=== PATIENT | female | born 2000 | race Caucasian/White ===

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

== ENCOUNTER 2020-01-07 02:41 | Outpatient (CLI) | payer MEDICAID ==
[~2020-01-07] VITALS: Ht 165.1 cm; Wt 125.0 kg
[2020-01-07 03:27] VITALS: BP 129/83
[2020-01-07 03:27] LABS: MICROSCOPIC INDICATED
== END 2020-01-07 04:10 | disposition home or self-care (01) ==
LOC: LDOP 02:41
PROVIDERS: ATTEND Obstetrics & Gynecology Female Pelvic Medicine and Reconstructive Surgery
DX: O42.92 Full-term premature rupture of membranes, unspecified as to length of time between rupture and onset of labor (principal); Z3A.39 39 weeks gestation of pregnancy
CPT/HCPCS: 59025; 81001

== ENCOUNTER 2020-01-11 12:09 | Inpatient (IN) | payer MEDICAID ==
[~2020-01-11] VITALS: Ht 165.1 cm; Wt 125.0 kg
[2020-01-18] MEDS ORDERED: MISOPROSTOL 25 MCG TABLET ONE ×2 (11:59→16:03)
[2020-01-18] MEDS ORDERED: OXYTOCIN 30U/ 0.9% NaCL 500ML 500 ML ONE (11:59)
[2020-01-18] MEDS ORDERED: NEWBORN KIT ONE (11:59)
[2020-01-18] MEDS: LACTATED RINGERS 1,000 ML IV SCH (12:15)
[2020-01-18] MEDS: MISOPROSTOL 25 MCG TABLET VG PRN ×2 (12:15→16:15)
[2020-01-18] MEDS ORDERED: TERBUTALINE 1 MG/ML, 1ML IVPush PRN (12:30)
[2020-01-18] MEDS ORDERED: FENTANYL PF 100 MCG/2ML IVPush PRN (12:30)
[2020-01-18] MEDS ORDERED: CALCIUM CARBONATE 500 MG TAB.CHEW PO PRN (12:30)
[2020-01-18] MEDS ORDERED: ONDANSETRON 2MG/ML, 2ML IVPush PRN (12:30)
[2020-01-18] MEDS ORDERED: OXYTOCIN 30U/ 0.9% NaCL 500ML 500 ML IV PRN (12:30)
[2020-01-18] MEDS ORDERED: D5%-LACTATED RINGERS 1,000 ML IV SCH (12:30)
[2020-01-18] MEDS ORDERED: OXYTOCIN 30U/ 0.9% NaCL 500ML 500 ML IV ONE (12:30)
[2020-01-18] MEDS ORDERED: TERBUTALINE 1 MG/ML, 1ML SQ PRN (12:30)
[2020-01-18] MEDS ORDERED: FENTANYL PF 100 MCG/2ML IV PRN (12:30)
[2020-01-18 12:47] LABS: BASOPHILS % (AUTO) 0 % (0-1); EOSINOPHILS % (AUTO) 1 % (1-7); LYMPHOCYTES % (AUTO) 23 % (22-44); MD NO; MEAN CORPUSCULAR HEMOGLOBIN 28.9 pg (27.0-34.8); MEAN CORPUSCULAR HGB CONC 32.9 g/dL (32.4-35.8); MEAN PLATELET VOLUME 9.4 fL (7.4-10.4); MONOCYTES % (AUTO) 6 % (2-9); NEUTROPHILS % (AUTO) 70 % (42-75); PLATELET COUNT 223 x10^3/uL (130-400); RED BLOOD COUNT 4.22 x10^6/uL (3.82-5.3); RED CELL DISTRIBUTION WIDTH 14.5 % (9.6-15.2)
[2020-01-18] MEDS ORDERED: LIDOCAINE 1%, 20ML ONE (17:08)
[2020-01-18] MEDS ORDERED: MISOPROSTOL 200 MCG TABLET ONE (17:09)
[2020-01-18] MEDS ORDERED: TERBUTALINE 1 MG/ML, 1ML ONE (20:30)
[2020-01-19] MEDS ORDERED: FENTANYL PF 100 MCG/2ML ONE (00:44)
[2020-01-19] MEDS: LACTATED RINGERS 1,000 ML IV SCH ×2 (00:51→01:33)
[2020-01-19] MEDS ORDERED: BUPIVACAINE 0.25% ONE (01:13)
[2020-01-19] MEDS ORDERED: FENTANYL/BUPIV./NS/PF 250 ML EPIDCONT ONE (01:13)
[2020-01-19] MEDS ORDERED: LIDOCAINE 1%, 20ML ONE (01:15)
[2020-01-19] MEDS ORDERED: LIDOCAINE/PF 1.5%-EPI 1:200K, 30ML ONE (01:15)
[2020-01-19] MEDS ORDERED: LACTATED RINGERS 1,000 ML IVBOLUS PRN (02:00)
[2020-01-19] MEDS ORDERED: ONDANSETRON 2MG/ML, 2ML IVPush PRN (02:00)
[2020-01-19] MEDS ORDERED: EPHEDRINE 50 MG/ML, 1ML IVPush PRN (02:00)
[2020-01-19] MEDS ORDERED: NALOXONE 0.4 MG/ML, 1ML IVPush PRN (02:00)
[2020-01-19] MEDS ORDERED: LACTATED RINGERS 1,000 ML IV SCH (02:00)
[2020-01-19] MEDS ORDERED: FENTANYL/BUPIV./NS/PF 250 ML EPIDCONT SCH (02:00)
[2020-01-19] MEDS ORDERED: DIPHENHYDRAMINE 50 MG/ML, 1ML IVPush PRN (02:00)
[2020-01-19] MEDS ORDERED: MISOPROSTOL 200 MCG TABLET PR PRN (05:00)
[2020-01-19] MEDS ORDERED: ACETAMINOPHEN 325 MG TABLET PO PRN (05:00)
[2020-01-19] MEDS ORDERED: METOCLOPRAMIDE 5 MG/ML, 2ML IV PRN (05:00)
[2020-01-19] MEDS ORDERED: OXYTOCIN 30U/ 0.9% NaCL 500ML 500 ML IV SCH (05:00)
[2020-01-19] MEDS ORDERED: SIMETHICONE 80 MG CHEW TAB PO PRN (05:00)
[2020-01-19] MEDS ORDERED: ONDANSETRON 2MG/ML, 2ML IV PRN (05:00)
[2020-01-19] MEDS ORDERED: HYDROcodone/APAP 5/325 TABLET PO PRN ×2 (05:00)
[2020-01-19] MEDS ORDERED: ACETAMINOPHEN 325 MG TABLET ONE (05:45)
[2020-01-19] MEDS ORDERED: OXYTOCIN 30U/ 0.9% NaCL 500ML 500 ML ONE (06:48)
[2020-01-19 07:55] VITALS: BP 103/60
[2020-01-19] MEDS: PRENATAL VIT/IRON/FA 1 EACH TABLET PO SCH (10:00)
[2020-01-19] MEDS: IBUPROFEN 600 MG TABLET PO PRN ×3 (10:00→23:44)
[2020-01-19] MEDS: DOCUSATE 100 MG CAPSULE PO PRN ×2 (10:00→23:44)
[2020-01-19 12:35] VITALS: BP 119/71
[2020-01-19 13:20] LABS: BASOPHILS % (AUTO) 0 % (0-1); EOSINOPHILS % (AUTO) 0 % (1-7); LYMPHOCYTES % (AUTO) 20 % (22-44); MEAN CORPUSCULAR HEMOGLOBIN 29.3 pg (27.0-34.8); MEAN CORPUSCULAR HGB CONC 33.2 g/dL (32.4-35.8); MEAN PLATELET VOLUME 9.7 fL (7.4-10.4); MONOCYTES % (AUTO) 9 % (2-9); NEUTROPHILS % (AUTO) 71 % (42-75); PLATELET COUNT 202 x10^3/uL (130-400); RED CELL DISTRIBUTION WIDTH 14.6 % (9.6-15.2)
[2020-01-19 13:59] LABS: MD SCAN
[2020-01-19 16:00] VITALS: BP 112/71
[2020-01-19] MEDS ORDERED: MEASLES,MUMPS&RUBELLA VACC/PF 0.5 ML SQ-VACC ONE (17:30)
[2020-01-19 20:17] VITALS: BP 129/86
[2020-01-19 23:45] VITALS: BP 118/81
[2020-01-20 04:00] VITALS: BP 95/58
[2020-01-20] MEDS: PRENATAL VIT/IRON/FA 1 EACH TABLET PO SCH (07:19)
[2020-01-20] MEDS: DOCUSATE 100 MG CAPSULE PO PRN (07:19)
[2020-01-20 07:20] VITALS: BP 125/87
[2020-01-20] MEDS ORDERED: IBUP-1222 PO (08:47)
[2020-01-20] MEDS: IBUPROFEN 600 MG TABLET PO PRN (09:48)
== END 2020-01-20 10:20 | disposition home or self-care (01) | DRG 807 ==
LOC: LDIP 01-18 11:41 → 2NW 01-19 07:51
PROVIDERS: ADMIT Obstetrics & Gynecology Female Pelvic Medicine and Reconstructive Surgery; ATTEND Obstetrics & Gynecology Female Pelvic Medicine and Reconstructive Surgery
PROC: 10E0XZZ Delivery of Products of Conception, External Approach (ICD-10-PCS; principal; 2020-01-19)
PROC: 0HQ9XZZ Repair Perineum Skin, External Approach (ICD-10-PCS; 2020-01-19)
DX: O48.0 Post-term pregnancy (principal); Z37.0 Single live birth; J45.909 Unspecified asthma, uncomplicated; O70.0 First degree perineal laceration during delivery; O71.82 Other specified trauma to perineum and vulva; O76 Abnormality in fetal heart rate and rhythm complicating labor and delivery; O99.52 Diseases of the respiratory system complicating childbirth; Z3A.41 41 weeks gestation of pregnancy; Z20.828 Contact with and (suspected) exposure to other viral communicable diseases
CPT/HCPCS: 36415; J3490; J7121; 85025; 86592; 86850; 86900; 87635; G0378; J2590; J3010; J7120

== ENCOUNTER 2020-01-16 17:20 | Outpatient (CLI) | payer MEDICAID ==
[~2020-01-16] VITALS: Ht 165.1 cm; Wt 125.0 kg
[2020-01-16 17:31] VITALS: BP 118/75
== END 2020-01-16 18:23 | disposition home or self-care (01) ==
LOC: LDOP 17:20
PROVIDERS: ATTEND Obstetrics & Gynecology Female Pelvic Medicine and Reconstructive Surgery
DX: O26.893 Other specified pregnancy related conditions, third trimester (principal); R10.9 Unspecified abdominal pain; Z3A.40 40 weeks gestation of pregnancy
CPT/HCPCS: 59025

== ENCOUNTER 2020-05-07 21:50 | Emergency (ER) | payer MEDICAID ==
[~2020-05-07] VITALS: Ht 165.1 cm; Wt 113.4 kg
[~2020-05-07 21:50] MED LIST changes: +IBUP-1222 PO
[2020-05-07 22:45] LABS: BASOPHILS % (AUTO) 1 % (0-1); EOSINOPHILS % (AUTO) 5 % (1-7); LYMPHOCYTES % (AUTO) 49 % (22-44); MD NO; MEAN CORPUSCULAR HEMOGLOBIN 28.4 pg (27.0-34.8); MEAN CORPUSCULAR HGB CONC 33.5 g/dL (32.4-35.8); MEAN PLATELET VOLUME 9.2 fL (7.4-10.4); MONOCYTES % (AUTO) 8 % (2-9); NEUTROPHILS % (AUTO) 36 % (42-75); PLATELET COUNT 300 x10^3/uL (130-400); RED BLOOD COUNT 4.36 x10^6/uL (3.82-5.3); RED CELL DISTRIBUTION WIDTH 13.7 % (9.6-15.2)
[2020-05-07 22:50] LABS: ALBUMIN 3.3 g/dL (3.4-5.0); ANION GAP 7 mmol/L (5-15); CALCIUM 8.8 mg/dL (8.5-10.1); CHLORIDE 112 mmol/L (98-107); CREATININE 0.75 mg/dL (0.55-1.02)
[2020-05-07 22:54] LABS: TROPONIN I < 0.015 ng/mL (0.000-0.045)
[2020-05-07 23:37] VITALS: BP 119/66
--- NOTE | 2020-05-07 23:37 | NUR ---
Pt dc'd with written and verbal instructions. Pt ambulatory out of ED without difficulty. Pt states she understands DC instructions. Pt dc in no distress.
== END 2020-05-07 23:40 | disposition home or self-care (01) ==
LOC: ED 22:30
DX: R07.89 Other chest pain (principal); G89.29 Other chronic pain; R94.31 Abnormal electrocardiogram [ECG] [EKG]
CPT/HCPCS: 36415; 71045; 80048; 82040; 84484; 84703; 85025; 93005; 99285

== ENCOUNTER 2020-07-06 01:15 | Emergency (ER) | payer MEDICAID ==
[~2020-07-06] VITALS: Ht 165.1 cm; Wt 116.0 kg
--- NOTE | 2020-07-06 01:48 | NUR ---
pt reports coming into ed tonight d/t abdominal cristian midline x2 weeks, denies vomitting/diarrhea, reports nausea for that time. states tonight her pain got significantly worse tonight so she decided to come in. pt nad, changed into gown, ambulated to and from bathroom with a smooth and steady gait, placed on spo2/bp monitoring at this time. provided warm blankets for comfort, bed in lowest, rails engaged, call light on lap, wctm.
--- NOTE | 2020-07-06 02:41 | NUR ---
UA SENT TO LAB, US AT BS, PT RESTING ON GURNEY, NAD, APPEARS COMFORTABLE, VSS, NO CHANGE IN CONDITION, WCTM. WAITING FOR LABS, SO AT BS
[2020-07-06 02:42] LABS: BASOPHILS % (AUTO) 1 % (0-1); EOSINOPHILS % (AUTO) 6 % (1-7); LYMPHOCYTES % (AUTO) 21 % (22-44); MEAN CORPUSCULAR HEMOGLOBIN 27.6 pg (27.0-34.8); MEAN CORPUSCULAR HGB CONC 32.8 g/dL (32.4-35.8); MEAN PLATELET VOLUME 8.9 fL (7.4-10.4); MONOCYTES % (AUTO) 6 % (2-9); NEUTROPHILS % (AUTO) 67 % (42-75); PLATELET COUNT 288 x10^3/uL (130-400); RED BLOOD COUNT 4.78 x10^6/uL (3.82-5.3)
[2020-07-06 02:47] LABS: MD NO
[2020-07-06 02:48] LABS: HCG UR SG 1.036 (1.003-1.030); MICROSCOPIC INDICATED
[2020-07-06 02:53] LABS: ALANINE AMINOTRANSFERASE 20 U/L (12-78); ALBUMIN 3.5 g/dL (3.4-5.0); ANION GAP 5 mmol/L (5-15); CALCIUM 8.9 mg/dL (8.5-10.1); CHLORIDE 109 mmol/L (98-107); CREATININE 0.74 mg/dL (0.55-1.02)
[2020-07-06 02:56] LABS: ALKALINE PHOSPHATASE 84 U/L (45-117); BILIRUBIN,TOTAL 0.2 mg/dL (0.2-1.0); TOTAL PROTEIN 7.1 g/dL (6.4-8.2)
--- NOTE | 2020-07-06 03:20 | NUR ---
PT RESTING ON GURNEY, LAYIGN ON LEFT SIDE, EVEN AND UNLABORED RESPIRATIONS NOTED, APPEARS COMFORTABLE, SO AT BS, BED IN LOWEST, RAILS ENGAGED, CALL LIGHT ON LAP, WCTM. WAITING FOR US READ
[2020-07-06 04:40] VITALS: BP 128/71
--- NOTE | 2020-07-06 04:44 | NUR ---
Patient given discharge instructions and they have confirmed that they understand the instructions. Patient ambulatory with steady gait. nad, denies additional needs, all questions answered appropriately, no personal belongings left in room after dc.
== END 2020-07-06 04:45 | disposition home or self-care (01) ==
LOC: ED 01:45
DX: R10.13 Epigastric pain (principal); R11.0 Nausea
CPT/HCPCS: 36415; 76700; 80053; 81001; 81025; 83690; 85025; 87086; 99284

== ENCOUNTER 2020-10-23 14:31 | Emergency (ER) | payer MEDICAID ==
[~2020-10-23] VITALS: Ht 165.1 cm; Wt 105.6 kg
[2020-10-23 14:40] VITALS: BP 115/65
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
[2020-10-23] MEDS ORDERED: DIPH,PERTUSS(ACELL),TET VAC/PF 0.5 ML IM-VACC ONE ×2 (15:13→16:00)
[2020-10-23] MEDS ORDERED: LIDOCAINE-MPF 1%, 5ML ONE (15:13)
[2020-10-23] MEDS ORDERED: LIDOCAINE-MPF 1%, 5ML INFIL ONE (16:00)
--- NOTE | 2020-10-23 16:36 | NUR ---
Patient/Caregiver given discharge instructions and they have confirmed that they understand the instructions. Patient ambulatory with steady gait. NAD, all questions answered appropriately, denies additional needs at this time. No personal belongings left in room after discharge.
== END 2020-10-23 16:38 | disposition home or self-care (01) ==
LOC: ED 15:08
DX: S01.511A Laceration without foreign body of lip, initial encounter (principal); Y04.8XXA Assault by other bodily force, initial encounter; Y93.89 Activity, other specified; Y92.009 Unspecified place in unspecified non-institutional (private) residence as the place of occurrence of the external cause; Y99.8 Other external cause status
CPT/HCPCS: 12011; 90471; 90715; 99283